=== PATIENT | male | born 1965 | race Caucasian/White ===

== ENCOUNTER 2020-07-22 08:48 | Day surgery (SDC) | payer OTHER ==
[2020-07-17 10:44] VITALS: BMI 27.2
[2020-07-22 10:42] VITALS: TEMP 99.4
[2020-07-22 10:52] VITALS: BP 118/88; PULSE 69
== END 2020-07-22 11:30 | disposition home or self-care (01) ==
LOC: FASU-ENDO 08:48
PROVIDERS: ATTEND Internal Medicine Gastroenterology
PROC: 0DB78ZX Excision of Stomach, Pylorus, Via Natural or Artificial Opening Endoscopic, Diagnostic (ICD-10-PCS; 2020-07-22)
PROC: 0DB48ZX Excision of Esophagogastric Junction, Via Natural or Artificial Opening Endoscopic, Diagnostic (ICD-10-PCS; 2020-07-22)
PROC: 0DB98ZX Excision of Duodenum, Via Natural or Artificial Opening Endoscopic, Diagnostic (ICD-10-PCS; principal; 2020-07-22 10:05)
DX: K29.50 Unspecified chronic gastritis without bleeding (principal); K31.89 Other diseases of stomach and duodenum
CPT/HCPCS: 88305-TC; 88342-TC

== ENCOUNTER 2020-09-23 11:00 | Day surgery (SDC) | payer OTHER ==
[2020-09-19 16:46] VITALS: BMI 27.2
[2020-09-23] MEDS ORDERED: PROPOFOL 20 ML ONE ×2 (12:12)
[2020-09-23 13:00] VITALS: PULSE 71; TEMP 97.8
[2020-09-23 13:19] VITALS: BP 120/78
== END 2020-09-23 14:09 | disposition home or self-care (01) ==
LOC: FASU-ENDO 11:00
PROVIDERS: ATTEND Internal Medicine Gastroenterology
PROC: 0DBE8ZX Excision of Large Intestine, Via Natural or Artificial Opening Endoscopic, Diagnostic (ICD-10-PCS; principal; 2020-09-23 12:23)
DX: R19.7 Diarrhea, unspecified (principal); K63.5 Polyp of colon; K62.89 Other specified diseases of anus and rectum; K63.89 Other specified diseases of intestine; K64.2 Third degree hemorrhoids; K64.8 Other hemorrhoids; K64.5 Perianal venous thrombosis